=== PATIENT | female | born 1980 | race Caucasian/White ===

== ENCOUNTER 2020-04-20 10:50 | Inpatient (IN) | payer BC, OTHER ==
[~2020-04-20] VITALS: Ht 172.7 cm; Wt 76.8 kg
[2020-04-20] MEDS ORDERED: OXYTOCIN 30U/ 0.9% NaCL 500ML 500 ML IV ONE (11:22)
[2020-04-20] MEDS: D5%-LACTATED RINGERS 1,000 ML IV SCH ×2 (11:22→19:22)
[2020-04-20] MEDS ORDERED: MAGNESIUM SULF. PMX 20GM/500ML 500 ML IV ONE ×2 (11:25→19:03)
[2020-04-20] MEDS ORDERED: OXYTOCIN 30U/ 0.9% NaCL 500ML 500 ML ONE (11:30)
[2020-04-20] MEDS ORDERED: TERBUTALINE 1 MG/ML, 1ML SQ PRN (11:30)
[2020-04-20] MEDS ORDERED: MISOPROSTOL 200 MCG TABLET ONE (11:30)
[2020-04-20] MEDS ORDERED: ONDANSETRON 2MG/ML, 2ML IVPush PRN (11:30)
[2020-04-20] MEDS ORDERED: LIDOCAINE 1%, 20ML ONE (11:30)
[2020-04-20] MEDS: LACTATED RINGERS 1,000 ML IV SCH ×3 (11:30→17:39)
[2020-04-20] MEDS ORDERED: FENTANYL PF 100 MCG/2ML IV PRN (11:30)
[2020-04-20] MEDS ORDERED: NEWBORN KIT ONE (11:30)
[2020-04-20] MEDS ORDERED: TERBUTALINE 1 MG/ML, 1ML IVPush PRN (11:30)
[2020-04-20] MEDS ORDERED: BETAMETHASONE 6 MG/ML, 5ML IM ONE (11:35)
[2020-04-20] MEDS: MAGNESIUM SULF. PMX 20GM/500ML 500 ML IV SCH ×2 (11:58→19:09)
[2020-04-20] MEDS ORDERED: MAGNESIUM SULFATE PMX 4GM/100M 100 ML IVPB ONE (12:00)
[2020-04-20] MEDS ORDERED: BETAMETHASONE 6 MG/ML, 5ML IM SCH (12:00)
[2020-04-20 12:01] VITALS: BP 134/81
[2020-04-20 12:03] LABS: BASOPHILS # (AUTO) 0.06 x10^3/uL (0-0.1); BASOPHILS % (AUTO) 1 % (0-1); EOSINOPHILS # (AUTO) 0.03 x10^3/uL (0-0.4); EOSINOPHILS % (AUTO) 0 % (1-7); LYMPHOCYTES # (AUTO) 1.44 x10^3/uL (1-3.4); LYMPHOCYTES % (AUTO) 10 % (22-44); MD NO; MEAN CORPUSCULAR HEMOGLOBIN 29.3 pg (27.0-34.8); MEAN CORPUSCULAR VOLUME 88.8 fL (80-100); MEAN PLATELET VOLUME 9.1 fL (7.4-10.4); MONOCYTES # (AUTO) 0.83 x10^3/uL (0.2-0.8); MONOCYTES % (AUTO) 6 % (2-9); NEUTROPHILS # (AUTO) 11.47 x10^3/uL (1.8-6.8); NEUTROPHILS % (AUTO) 83 % (42-75); PLATELET COUNT 334 x10^3/uL (130-400); RED BLOOD COUNT 4.29 x10^6/uL (3.82-5.3); RED CELL DISTRIBUTION WIDTH 13.6 % (9.6-15.2)
[2020-04-20] MEDS ORDERED: FENTANYL PF 100 MCG/2ML ONE ×2 (12:55→15:12)
[2020-04-20] MEDS: FENTANYL PF 100 MCG/2ML IVPush PRN ×2 (12:58→15:35)
[2020-04-20] MEDS ORDERED: AMPICILLIN 2 GM in SODIUM CHLORIDE 0.9% 100 ML IV ONE (14:00)
[2020-04-20] MEDS ORDERED: FENTANYL/BUPIV./NS/PF 250 ML EPIDCONT ONE (17:24)
[2020-04-20] MEDS ORDERED: BUPIVACAINE 0.25% ONE (17:38)
[2020-04-20] MEDS: AMPICILLIN 1 GM in SODIUM CHLORIDE 0.9% 100 ML IV SCH (18:00)
[2020-04-20] MEDS ORDERED: PREN1TAB60 PO (18:19)
[2020-04-20] MEDS ORDERED: LEVO125T85 PO (18:55)
[2020-04-21] MEDS ORDERED: KETOROLAC 30 MG/1 ML ONE (02:24)
[2020-04-21] MEDS ORDERED: DEXAMETHASONE 4 MG/ML, 1ML ONE (02:24)
[2020-04-21] MEDS ORDERED: CEFAZOLIN 1,000 MG ONE (02:24)
[2020-04-21] MEDS ORDERED: SUCCINYLCHOLINE 20 MG/ML, 10ML ONE (02:24)
[2020-04-21] MEDS ORDERED: OXYTOCIN 10 UNITS/ML, 1ML ONE (02:24)
[2020-04-21] MEDS ORDERED: PROPOFOL 10 MG/ML, 20ML ONE (02:24)
[2020-04-21] MEDS ORDERED: EPHEDRINE 50 MG/ML, 1ML ONE (02:24)
[2020-04-21] MEDS ORDERED: ONDANSETRON 2MG/ML, 2ML ONE (02:24)
[2020-04-21] MEDS ORDERED: PHENYLEPHRINE 10 MG/ML ONE (02:24)
[2020-04-21] MEDS ORDERED: FENTANYL PF 100 MCG/2ML ONE ×3 (02:25→04:50)
[2020-04-21] MEDS ORDERED: morphine SULFATE/PF 0.5 MG/ML, 10ML ONE (02:43)
[2020-04-21] MEDS ORDERED: METOCLOPRAMIDE 5 MG/ML, 2ML ONE (02:58)
[2020-04-21] MEDS ORDERED: OXYTOCIN 30U/ 0.9% NaCL 500ML 0 ML ONE (02:58)
[2020-04-21] MEDS ORDERED: SODIUM CITRATE/CITRIC ACID 30 ML UDC ONE (02:59)
[2020-04-21] MEDS: D5%-LACTATED RINGERS 1,000 ML IV SCH (03:22)
[2020-04-21] MEDS ORDERED: morphine SULFATE 10 MG/ML, 1ML IVPush PRN (03:47)
[2020-04-21] MEDS: OXYTOCIN 30U/ 0.9% NaCL 500ML 500 ML IV SCH ×3 (03:47→23:47)
[2020-04-21] MEDS: KETOROLAC 30 MG/1 ML IV SCH ×4 (04:00→22:32)
[2020-04-21] MEDS ORDERED: OXYcodone IR 5MG TABLET PO PRN (04:00)
[2020-04-21] MEDS ORDERED: METHYLERGONOVINE 0.2 MG/ML IM PRN (04:00)
[2020-04-21] MEDS ORDERED: ACETAMINOPHEN 325 MG TABLET PO PRN (04:00)
[2020-04-21] MEDS ORDERED: CARBOPROST TROMETHAMINE 250 MCG/ML, 1ML IM PRN (04:00)
[2020-04-21] MEDS ORDERED: MISOPROSTOL 200 MCG TABLET PR PRN (04:00)
[2020-04-21] MEDS: FENTANYL PF 100 MCG/2ML IVPush PRN ×4 (04:57→07:30)
[2020-04-21 05:25] VITALS: BP 106/64
[2020-04-21] MEDS: AMPICILLIN 1 GM in SODIUM CHLORIDE 0.9% 100 ML IV SCH ×2 (06:00)
[2020-04-21 07:25] VITALS: BP 105/66
[2020-04-21] MEDS ORDERED: OXYTOCIN 30U/ 0.9% NaCL 500ML 500 ML IV SCH (07:48)
[2020-04-21] MEDS: LACTATED RINGERS 1,000 ML IV SCH ×5 (07:48→23:48)
[2020-04-21] MEDS ORDERED: SIMETHICONE 80 MG CHEW TAB PO PRN (08:00)
[2020-04-21] MEDS: PRENATAL VIT/IRON/FA 1 EACH TABLET PO SCH (08:47)
[2020-04-21 11:25] LABS: MEAN CORPUSCULAR HEMOGLOBIN 29.4 pg (27.0-34.8); MEAN CORPUSCULAR HGB CONC 33.3 g/dL (32.4-35.8); MEAN CORPUSCULAR VOLUME 88.3 fL (80-100); PLATELET COUNT 275 x10^3/uL (130-400); RED BLOOD COUNT 3.42 x10^6/uL (3.82-5.3); RED CELL DISTRIBUTION WIDTH 13.4 % (9.6-15.2)
[2020-04-21 11:48] LABS: MD YES
[2020-04-21 11:49] LABS: BAND#(MANUAL) 1.06 x10^3/uL; BANDS%(MANUAL) 5 % (0-7); LYMPH#(MANUAL) 2.32 x10^3/uL (1-3.4); LYMPHS% (MANUAL) 11 % (22-44); MONOS#(MANUAL) 2.11 x10^3/uL (0.3-2.7); MONOS% (MANUAL) 10 % (2-9); SEG#(MANUAL) 15.61 x10^3/uL (1.8-6.8); SEGS% (MANUAL) 74 % (42-75)
[2020-04-21 11:50] LABS: <PLATELET ESTIMATE> ADEQUATE; <PLT MORPHOLOGY> NORMAL PLT MORPH; <RBC MORPHOLOGY> NORMAL
[2020-04-21] MEDS ORDERED: LABETALOL 5MG/ML, 20ML IV PRN (12:00)
[2020-04-21] MEDS ORDERED: FENTANYL PF 100 MCG/2ML IV PRN (12:00)
[2020-04-21] MEDS ORDERED: HYDROmorphone 2 MG/ML, 1ML IVPush PRN (12:00)
[2020-04-21] MEDS ORDERED: MEPERIDINE/PF 25MG/0.5ML IVPush PRN (12:00)
[2020-04-21] MEDS ORDERED: hydrALAzine 20 MG/ML, 1ML IV PRN (12:00)
[2020-04-21] MEDS ORDERED: ALBUTEROL SULFATE 2.5 MG/3 ML NPPB PRN (12:00)
[2020-04-21] MEDS ORDERED: ONDANSETRON 2MG/ML, 2ML IVPush PRN (12:00)
[2020-04-21] MEDS ORDERED: FENTANYL/BUPIV./NS/PF 250 ML EPIDCONT SCH ×2 (12:00)
[2020-04-21] MEDS ORDERED: LACTATED RINGERS 1,000 ML IV SCH ×2 (12:00)
[2020-04-21] MEDS ORDERED: LACTATED RINGERS 1,000 ML IVBOLUS PRN ×2 (12:00)
[2020-04-21] MEDS ORDERED: MIDAZOLAM 1 MG/ML, 2ML IV PRN (12:00)
[2020-04-21] MEDS ORDERED: METOPROLOL 1 MG/ML, 5ML IV PRN (12:00)
[2020-04-21] MEDS ORDERED: EPHEDRINE 50 MG/ML, 1ML IVPush PRN ×3 (12:00)
[2020-04-21] MEDS ORDERED: HYDROcodone/APAP 7.5-325MG/15ML UDC PO PRN (12:00)
[2020-04-21] MEDS ORDERED: NALOXONE 0.4 MG/ML, 1ML IVPush PRN ×2 (12:00)
[2020-04-21] MEDS ORDERED: PROMETHAZINE 25 MG/ML, 1ML IV PRN (12:30)
[2020-04-21] MEDS ORDERED: OXYcodone 5 MG/5 ML ORAL.SOL UDC PO PRN (12:30)
[2020-04-21 13:03] VITALS: BP 97/59
[2020-04-21] MEDS: OXYcodone/APAP 5/325MG TABLET PO PRN ×2 (13:31→19:53)
[2020-04-21 16:15] VITALS: BP 99/65
[2020-04-21 19:40] VITALS: BP 104/67
[2020-04-21] MEDS: DOCUSATE 100 MG CAPSULE PO PRN (19:53)
[2020-04-22 01:00] VITALS: BP 93/59
[2020-04-22] MEDS: OXYcodone/APAP 5/325MG TABLET PO PRN ×4 (01:58→20:36)
[2020-04-22] MEDS: LACTATED RINGERS 1,000 ML IV SCH ×6 (03:48→23:48)
[2020-04-22] MEDS: KETOROLAC 30 MG/1 ML IV SCH ×4 (04:08→22:12)
[2020-04-22] MEDS: DOCUSATE 100 MG CAPSULE PO PRN ×2 (08:19→20:36)
[2020-04-22] MEDS: PRENATAL VIT/IRON/FA 1 EACH TABLET PO SCH (08:19)
[2020-04-22 08:30] VITALS: BP 112/72
[2020-04-22] MEDS: OXYTOCIN 30U/ 0.9% NaCL 500ML 500 ML IV SCH ×2 (09:47→19:29)
[2020-04-22 20:04] VITALS: BP 103/74
[2020-04-23] MEDS: OXYTOCIN 30U/ 0.9% NaCL 500ML 500 ML IV SCH (05:47)
[2020-04-23] MEDS: LACTATED RINGERS 1,000 ML IV SCH ×2 (07:48→09:48)
[2020-04-23] MEDS: IBUPROFEN 600 MG TABLET PO PRN ×2 (08:08→14:06)
[2020-04-23 08:28] VITALS: BP 119/75
[2020-04-23] MEDS: PRENATAL VIT/IRON/FA 1 EACH TABLET PO SCH (09:00)
[2020-04-23] MEDS: OXYcodone/APAP 5/325MG TABLET PO PRN (14:06)
[2020-04-23 20:00] VITALS: BP 103/69
[2020-04-24] MEDS: IBUPROFEN 600 MG TABLET PO PRN ×2 (09:38→16:20)
[2020-04-24] MEDS: OXYcodone/APAP 5/325MG TABLET PO PRN ×2 (09:38→16:20)
[2020-04-24] MEDS: PRENATAL VIT/IRON/FA 1 EACH TABLET PO SCH (09:38)
[2020-04-24 19:11] VITALS: BP 121/80
[2020-04-25 07:41] VITALS: BP 123/82
[2020-04-25] MEDS: DOCUSATE 100 MG CAPSULE PO PRN (07:46)
[2020-04-25] MEDS: IBUPROFEN 600 MG TABLET PO PRN (07:46)
[2020-04-25] MEDS: OXYcodone/APAP 5/325MG TABLET PO PRN (07:46)
[2020-04-25] MEDS: PRENATAL VIT/IRON/FA 1 EACH TABLET PO SCH (07:47)
[2020-04-25] MEDS ORDERED: OXYC-302 PO (08:26)
[2020-04-25] MEDS ORDERED: IBUP-1222 PO (08:26)
== END 2020-04-25 14:50 | disposition home or self-care (01) | DRG 786 ==
LOC: LDOP 10:50 → LDIP 11:23 → 2NW 04-21 05:18
PROVIDERS: ADMIT Obstetrics & Gynecology Maternal & Fetal Medicine; ATTEND Obstetrics & Gynecology Maternal & Fetal Medicine
PROC: 10D00Z1 Extraction of Products of Conception, Low, Open Approach (ICD-10-PCS; principal; 2020-04-21)
DX: O42.913 Preterm premature rupture of membranes, unspecified as to length of time between rupture and onset of labor, third trimester (principal); O60.14X0 Preterm labor third trimester with preterm delivery third trimester, not applicable or unspecified; Z37.0 Single live birth; O76 Abnormality in fetal heart rate and rhythm complicating labor and delivery; O99.284 Endocrine, nutritional and metabolic diseases complicating childbirth; E03.9 Hypothyroidism, unspecified; O99.824 Streptococcus B carrier state complicating childbirth; O90.89 Other complications of the puerperium, not elsewhere classified; G89.18 Other acute postprocedural pain; Z91.018 Allergy to other foods; Z3A.30 30 weeks gestation of pregnancy
CPT/HCPCS: 36415; 82803; 85025; 86592; 86850; 86900; 87081; 87147; 88307; G0378; J0290; J0690; J0702; J1100; J1885; J2274; J2405; J2704; J3010; J0330; J2370; J2590; J3475; J7120

== ENCOUNTER 2021-02-10 08:40 | Outpatient (CLI) | payer BC, OTHER ==
[~2021-02-10 08:40] MED LIST: IBUP-1222 PO; LEVO125T85 PO; OXYC1TAB14 PO; PREN1TAB60 PO
== END 2021-02-10 23:59 | disposition home or self-care (01) ==
LOC: CFH 08:40
PROVIDERS: ATTEND Family Medicine
DX: N60.02 Solitary cyst of left breast (principal); R92.2 Inconclusive mammogram
CPT/HCPCS: 76642; 77062; 77066; G0279